=== PATIENT | female | born 2005 | race Caucasian/White ===

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

== ENCOUNTER 2024-11-02 11:34 | Emergency (ER) | payer SELFPAY ==
[2024-11-02 12:20] VITALS: BP 128/74; PULSE 92; RESP 12; TEMP 36.8; O2SAT 99; BMI 22.6
[2024-11-02 13:30] LABS: Appearance Urine UA CLEAR; Bilirubin Urine UA 1+ (NEGATIVE); Color Urine UA YELLOW; Glucose Urine UA TRACE g/dL (Negative); Ketones Urine UA 3+ (NEGATIVE); Leukocyte Esterase Urine UA NEGATIVE (NEGATIVE); Nitrite Urine UA POSITIVE (Negative); Occult Blood Urine UA NEGATIVE (Negative); Protein Urine UA 1+ (Negative); Specific Gravity Urine UA 1.015 (1.000-1.035); Urobilinogen Urine UA 1.0 E.U./dL (0.2)
[2024-11-02 13:33] LABS: pH Urine UA 6.0 (4.5-8.0)
[2024-11-02 13:42] LABS: Culture Indicated Urine Cult Not Indicated
[2024-11-02 13:45] LABS: Ictotest Urine Negative (Negative)
--- NOTE | 2024-11-02 14:20 | PC.NURSE ---
Pt denies vaginal discharge, mild lower back pain, cramping today on way to UC, possible syncopal episode at UC (from pain?), pt states she took an at home test for UTI and states it was positive yesterday. Pt states she is having urgency and burning when she pees and after.
--- NOTE | 2024-11-02 15:34 | ED.FEMALEGU ---
HPI - Female Genitourinary <Lupe Ocasio PA-C - Last Filed: 11/02/24 20:00> General Chief complaint: Urogenital-Female Stated complaint: stomach pain , Dizzy sent from [facility] Time Seen by Provider: 11/02/24 14:26 Mode of arrival: Wheelchair History of Present Illness HPI Narrative: Ms. Dooley is a 18-year-old female with a past medical history of IUD placement a few weeks ago who presents to the emergency department for dysuria, frequency, concern for UTI x2 weeks. Patient states that she was having some intermittent dysuria and frequency prior [facility], however for the last 2 weeks she has noted more frequent urgency and burning with urination. Reports that she occasionally gets near syncopal episodes such as during her IUD placement, the day after her IUD placement and today when she attempted to go to the walk-in clinic. Patient states that she occasionally was getting upper epigastric abdominal pain and cramping that would get worse as she would develop anxiety. When she showed up to the walk-in clinic she reports that she started to feel abdominal pain and started to feel very faint. They checked her blood pressure which was very low and sent her to the ER. She reports that since she has showed up in the ER she has actually felt extremely well and has had no abdominal pain and has not felt lightheaded at all. She is continuing to have some dysuria though. She denies fevers, chills, flank pain, shortness of breath. She does report that she is starting to develop a runny nose and some sore throat as well and has recently been around sick people. Related Data Previous Rx's ?Medication ?Instructions ?Recorded cephalexin 500 mg capsule 500 mg PO TID 7 days #21 caps 11/02/24 Allergies Allergy/AdvReac Type Severity Reaction Status Date / Time No Known Drug Allergies Allergy Verified 09/14/24 11:42 Review of Systems <Lupe Ocasio PA-C - Last Filed: 11/02/24 20:00> Review of Systems ROS Unobtainable: All systems reviewed & are unremarkable except as noted in HPI and below Patient History <Lupe Ocasio PA-C - Last Filed: 11/02/24 20:00> Medical History EBV infection (03/16/23) Family History Father Eczema Grandmother Asthma Uncle Asthma Grandfather Eczema Aunt Eczema Exam <Lupe Ocasio PA-C - Last Filed: 11/02/24 20:00> Narrative Exam Narrative: GENERAL: 18 year old patient appears stated age. Well-developed patient, in no acute distress. HEAD: Atraumatic. Normocephalic. EYES: Extraocular motions intact. No scleral icterus. No injection or drainage. NECK: Trachea midline. Cervical ROM intact. CARDIOVASCULAR: Regular rate and rhythm. RESPIRATORY: ?Nonlabored respirations. ?Speaking in clear, full sentences. ?Clear to auscultation. Breath sounds equal bilaterally. No wheezes, rales, or rhonchi. ? GASTROINTESTINAL: Abdomen soft, non-tender, nondistended. Normal BS. EXTREMITIES: No edema or joint tenderness. BACK: No CVA tenderness BL. NEURO: AOx3. ?Clear speech. ?Moves all 4 extremities appropriately. SKIN: No rash or erythema of visible areas Initial Vital Signs Initial Vital Signs: Vital Signs Temperature 98.3 F 11/02/24 12:20 Pulse Rate 92 H 11/02/24 12:20 Respiratory Rate 12 11/02/24 12:20 Blood Pressure 128/74 11/02/24 12:20 Pulse Oximetry 99 11/02/24 12:20 Oxygen Delivery Method Room Air 11/02/24 12:20 <Baldemar Peterson MD - Last Filed: 11/05/24 18:42> Initial Vital Signs Initial Vital Signs: Vital Signs Temperature 98.3 F 11/02/24 12:20 Pulse Rate 92 H 11/02/24 12:20 Respiratory Rate 12 11/02/24 12:20 Blood Pressure 128/74 11/02/24 12:20 Pulse Oximetry 99 11/02/24 12:20 Oxygen Delivery Method Room Air 11/02/24 12:20 Course <Lupe Ocasio PA-C - Last Filed: 11/02/24 20:00> Orders Ordered: Discontinued Medications Cephalexin HCl (Cephalexin 250 Mg Capsule) 500 mg PO NOW ONE Stop: 11/02/24 16:06 Last Admin: 11/02/24 16:16 Dose: 500 mg Documented By: ABDIFATAH Vital Signs Vital signs: Vital Signs - 8 hr 11/02/24 12:20 11/02/24 16:42 Temperature 98.3 F 98.6 F Pulse Rate 92 H 977 H Respiratory Rate 12 19 Blood Pressure 128/74 108/59 L Pulse Oximetry 99 97 Oxygen Delivery Method Room Air Room Air <Baldemar Peterson MD - Last Filed: 11/05/24 18:42> Orders Ordered: Discontinued Medications Cephalexin HCl (Cephalexin 250 Mg Capsule) 500 mg PO NOW ONE Stop: 11/02/24 16:06 Last Admin: 11/02/24 16:16 Dose: 500 mg Documented By: ABDIFATAH Vital Signs Vital signs: Vital Signs - 8 hr 11/02/24 12:20 11/02/24 16:42 Temperature 98.3 F 98.6 F Pulse Rate 92 H 977 H Respiratory Rate 12 19 Blood Pressure 128/74 108/59 L Pulse Oximetry 99 97 Oxygen Delivery Method Room Air Room Air MDM - Female Genitourinary <Lupe Ocasio PA-C - Last Filed: 11/02/24 20:00> Medical Records Attestation: I reviewed the patient's medical records. Lab Data Labs: Lab Results 11/02/24 11/02/24 Range/Units 13:15 15:32 Urine Color Yellow Urine Appearance Clear Urine pH 6.0 (4.5-8.0) Ur Specific [place] 1.015 (1.000-1.035) Urine Protein 1+ H (Negative) Urine Glucose (UA) Trace H (Negative) g/dL Urine Ketones 3+ H (NEGATIVE) Urine Occult Blood Negative (Negative) Urine Nitrate Positive H (Negative) Urine Bilirubin 1+ H (NEGATIVE) Ur Bilirubin Confirm Negative (Negative) Urine Urobilinogen 1.0 (0.2) E.U./dL Ur Leukocyte Esterase Negative (NEGATIVE) Urine RBC 0-1/hpf 0-1/hpf (0-5/HPF) Urine WBC 1-5/hpf 0-1/hpf (0-5/HPF) Ur Squamous Epith Cells 5-10 /hpf H 1-5 /hpf (0-5/HPF) Urine Bacteria Moderate (10-30) H Occasional (0-1) D (None) Ur Culture Indicated? Cult not indicated Cult not indicated Vol Urine Centrifuged 10ml (spun) 10ml (spun) Point of Care Testing Test Results Negative Urine Dip Bedside Urine Glucose Negative Bedside Urine Bilirubin - Negative Bedside Urine Ketone - Negative Urine Specific [place] 1.005 Bedside Urine Occult Blood - Negative Bedside Urine pH 6.5 Bedside Urine Protein - Negative Bedside Urine Urobilinogen - Negative Bedside Urine Nitrite - Negative Bedside Urine Leukocytes - Negative Esterase MDM Narrative Medical decision making narrative: 18-year-old female with a past medical history of IUD placement a few weeks ago who presents to the emergency department for dysuria, frequency, concern for UTI x2 weeks. Differential diagnosis includes but is not limited to UTI, urethritis, STD, nephrolithiasis, ureterolithiasis, vaginitis, interstitial cystitis, IUD complication, etc. On exam the patient is in no acute distress, nontoxic-appearing, all vital signs within normal limits. She was sent to the ER from the walk-in clinic due to an episode of low blood pressure, near syncope and abdominal pain however patient states that since arriving to the emergency department and during her waiting time here those symptoms have entirely resolved. Reports that she has experienced near-syncope episodes in the past that were related to pain most recently due to IUD related pain. At this time she denies any subjective abdominal pain, her abdomen is also soft and nontender with no rebound, guarding, normal bowel sounds present and no CVA tenderness. Urinalysis was obtained, a 2nd urinalysis was then obtained as well as nursing staff stated initial urine sample had been sitting out too long. Urinalysis is positive for nitrites, patient does have small amount of RBCs, WBCs, bacteria. Given her symptoms, we will treat with Keflex t.i.d. times 5 days for acute UTI. Due to patient's previous abdominal pain and near syncopal episode, we discussed possibility such as vasovagal syncope or other abdominal pathology that would require lab work and imaging. At this time patient states that she feels extremely well and she does not have insurance does not wish to proceed with any additional workup. I did discuss extremely strict ED return precautions including but not limiting to any subsequent feelings of lightheadedness, abdominal pain or symptoms that do not improve. Patient verbalized understanding of all information is agreeable with the plan, persists of antibiotics given the ED, recommended 2 days of azo to help with the pain as well. All questions answered, she is stable for discharge home. <Baldemar Peterson MD - Last Filed: 11/05/24 18:42> Lab Data Labs: Lab Results 11/02/24 11/02/24 Range/Units 13:15 15:32 Urine Color Yellow Urine Appearance Clear Urine pH 6.0 (4.5-8.0) Ur Specific [place] 1.015 (1.000-1.035) Urine Protein 1+ H (Negative) Urine Glucose (UA) Trace H (Negative) g/dL Urine Ketones 3+ H (NEGATIVE) Urine Occult Blood Negative (Negative) Urine Nitrate Positive H (Negative) Urine Bilirubin 1+ H (NEGATIVE) Ur Bilirubin Confirm Negative (Negative) Urine Urobilinogen 1.0 (0.2) E.U./dL Ur Leukocyte Esterase Negative (NEGATIVE) Urine RBC 0-1/hpf 0-1/hpf (0-5/HPF) Urine WBC 1-5/hpf 0-1/hpf (0-5/HPF) Ur Squamous Epith Cells 5-10 /hpf H 1-5 /hpf (0-5/HPF) Urine Bacteria Moderate (10-30) H Occasional (0-1) D (None) Ur Culture Indicated? Cult not indicated Cult not indicated Vol Urine Centrifuged 10ml (spun) 10ml (spun) Point of Care Testing Test Results Negative Urine Dip Bedside Urine Glucose Negative Bedside Urine Bilirubin - Negative Bedside Urine Ketone - Negative Urine Specific [place] 1.005 Bedside Urine Occult Blood - Negative Bedside Urine pH 6.5 Bedside Urine Protein - Negative Bedside Urine Urobilinogen - Negative Bedside Urine Nitrite - Negative Bedside Urine Leukocytes - Negative Esterase Discharge Plan Departure Patient Disposition: Home Clinical Impression: UTI (urinary tract infection) Qualifiers: Urinary tract infection type: site unspecified Hematuria presence: without hematuria Qualified Code(s): N39.0 - Urinary tract infection, site not specified Instructions: DI for Urinary Tract Infection (UTI) Activity Restrictions/Additional Instructions: Dear Hiren Soumya, Thank you for coming to the emergency department. I am very sorry that you have not been feeling well. Today we obtain a urine sample that is concerning for urinary tract infection. A urine culture has been sent and will result in 2-3 days, you will be called if this urine culture requires us to change her antibiotic. As we discussed, I am concerned about your episode of ?almost passing out? earlier today at the walk-in clinic, however the fact that your abdominal pain and these symptoms have completely resolved are very reassuring. If you do develop any new or worsening symptoms, please return to the emergency department immediately as you would need additional workup at that time. Return to the ER immediately if you develop abdominal pain, abnormal vaginal discharge, fevers, severe back pain, symptoms that do not improve or any other concerns. Please follow up with your primary care doctor within the next 2-3 days for ER follow-up. (If you do not have a PCP you can call [phone]. ?to schedule an appointment with an [facility] Primary Care Provider) IF YOU DEVELOP ANY NEW OR WORSENING SYMPTOMS, RETURN TO THE ER! Please read the attached instructions, they highlight more specific treatments and interventions for you at home. Thank you for letting me participate in your care, Lupe Ocasio PA-C Prescriptions: New cephalexin 500 mg capsule 500 mg PO TID 7 Days Qty: 21 0RF Referrals: Caleb Florez MD [Primary Care Provider, [facility]] Stand Alone Forms: Patient Portal/API ED Sign-out <Baldemar Peterson MD - Last Filed: 11/05/24 18:42> Cosign ED Attending Cosrobertature Attestation: I was immediately available in the department for consultation. ?This documentation has been reviewed and I agree with assessment and plan. Supervised by Baldemar Peterson MD
[2024-11-02 15:48] LABS: Culture Indicated Urine Cult Not Indicated
[2024-11-02 16:42] VITALS: BP 108/59; PULSE 97; RESP 19; TEMP 37; O2SAT 97
--- NOTE | 2024-11-02 20:11 | CM.SWNOTE ---
ED MARINA PORTER Note: Pt was cleared for discharge home with family. MARINA PORTER consulted as pt expressed financial insecurity and was worried about hospital bill. MARINA PORTER called pt with phone number on file, pt did not answer. MARINA PORTER left a voice message, offering pt to call back if MARINA PORTER can further assist. Rachel Otero, OUTSEWER
== END 2024-11-02 16:42 | disposition home or self-care (01) ==
PROVIDERS: Emergency Medicine; Emergency Provider Physician Assistant; PCP Family Medicine
DX: N39.0 Urinary tract infection, site not specified (principal)
CPT/HCPCS: 81001; 81003; 81015; 81025; 87086; 99283